=== PATIENT | female | born 1970 ===

== ENCOUNTER 2018-11-27 19:49 | Emergency (ER) | payer BC ==
[~2018-11-27] VITALS: Ht 170.2 cm; Wt 77.1 kg
[2018-11-27 19:53] VITALS: Ht 170.2 cm; Wt 77.1 kg
[2018-11-27 20:49] VITALS: BP 139/76
== END 2018-11-27 20:49 | disposition home or self-care (01) ==
LOC: ED 19:49
DX: S05.91XA Unspecified injury of right eye and orbit, initial encounter (principal); Z88.0 Allergy status to penicillin; X58.XXXA Exposure to other specified factors, initial encounter; Y93.89 Activity, other specified; Y92.89 Other specified places as the place of occurrence of the external cause; Y99.8 Other external cause status